=== PATIENT | female | born 1935 | race Caucasian/White ===

== ENCOUNTER 2024-03-14 08:31 | Emergency (ER) | payer OTHER, MEDICARE ==
[2024-03-14 09:25] VITALS: PULSE 75; RESP 17; TEMP 97.6; BMI 31.1
[2024-03-14 10:42] VITALS: BP 150/80
== END 2024-03-14 13:35 ==
LOC: JER 08:31
DX: R04.0 Epistaxis (principal)
CPT/HCPCS: 93005; 93010; 99283-25